=== PATIENT | male | born 1960 | race Caucasian/White ===

== ENCOUNTER 2017-04-09 15:52 | Emergency (ER) | payer BC ==
[~2017-04-09] VITALS: Wt 86.6 kg
[~2017-04-09 15:52] MED LIST: ADVAIR DISKUS1 DS1 IH; ALLERGY TAB; PREDNISONE 5MG5 MG PO; VALIUM10 MG PO
[2017-04-09] MEDS ORDERED: SINGULAIR PO (16:01)
[2017-04-09] MEDS ORDERED: PROAIR HFA0.09 MG/AC IH (16:02)
[2017-04-09 17:28] VITALS: BP 120/90
== END 2017-04-09 17:29 | disposition home or self-care (01) ==
LOC: ED 15:52
DX: M70.72 Other bursitis of hip, left hip (principal); M54.16 Radiculopathy, lumbar region

== ENCOUNTER → 2017-07-22 | Outpatient (CLI) | payer BC ==
[~2017-07-22] MED LIST changes: +PROAIR HFA0.09 MG/AC IH; +SINGULAIR PO
== END ==
LOC: RAD 07:41
DX: E87.6 Hypokalemia (principal); R74.8 Abnormal levels of other serum enzymes; K76.0 Fatty (change of) liver, not elsewhere classified

== ENCOUNTER → 2017-08-16 | Outpatient (CLI) | payer BC | LOC: RAD 12:00 | DX: I45.10 Unspecified right bundle-branch block (principal); R94.31 Abnormal electrocardiogram [ECG] [EKG] ==

== ENCOUNTER 2017-10-04 08:00 | Outpatient (RCR) | payer BC | END 2017-10-04 08:30 | disposition home or self-care (01) | LOC: PT 08:00 | DX: M54.5 Low back pain (principal); G89.29 Other chronic pain ==

== ENCOUNTER 2017-11-16 08:30 | Outpatient (RCR) | payer OTHER | END 2017-11-16 09:00 | disposition home or self-care (01) | LOC: OT 08:30 | DX: Z47.89 Encounter for other orthopedic aftercare (principal); X50.1XXD Overexertion from prolonged static or awkward postures, subsequent encounter; Y93.G1 Activity, food preparation and clean up; Y92.214 College as the place of occurrence of the external cause; Y99.0 Civilian activity done for income or pay ==

== ENCOUNTER → 2019-01-11 | Outpatient (CLI) | payer BC | LOC: RAD 07:00 | DX: R93.2 Abnormal findings on diagnostic imaging of liver and biliary tract (principal); K74.60 Unspecified cirrhosis of liver; R74.8 Abnormal levels of other serum enzymes; R53.83 Other fatigue; K76.0 Fatty (change of) liver, not elsewhere classified; R10.10 Upper abdominal pain, unspecified; R11.2 Nausea with vomiting, unspecified; F10.10 Alcohol abuse, uncomplicated ==

== ENCOUNTER → 2021-06-11 | Day surgery (SDC) | payer MEDICARE | END | disposition home or self-care (01) | LOC: MSO 07:32 | DX: Z12.11 Encounter for screening for malignant neoplasm of colon (principal); D12.0 Benign neoplasm of cecum; J45.20 Mild intermittent asthma, uncomplicated; M54.16 Radiculopathy, lumbar region; K70.30 Alcoholic cirrhosis of liver without ascites; F17.220 Nicotine dependence, chewing tobacco, uncomplicated; Z79.899 Other long term (current) drug therapy; Z79.1 Long term (current) use of non-steroidal anti-inflammatories (NSAID); Z79.51 Long term (current) use of inhaled steroids | CPT/HCPCS: 00811; J2704; J3010; J7120 ==